=== PATIENT | female | born 1990 | race Caucasian/White ===

== ENCOUNTER 2018-04-26 21:16 | Day surgery (SDC) | payer MEDICAID, OTHER ==
[2018-04-26 21:58] VITALS: BMI 33.8
--- NOTE | 2018-04-27 02:39 | PRG ---
DATE OF SERVICE: 04/26/2018 TIME OF SERVICE: 2230 hours. OB ED NOTE PRESENTING COMPLAINT: Contractions at 38 weeks and 2 days. HISTORY OF PRESENT ILLNESS: Ms. Canela is a 27-year-old, G2, P1 with an EDC of 06/12/2018 based on LM P with a first trimester ultrasound within 3 days of her VENECIA based on LMP. She presents complaining of contractions over the afternoon. She reports that they were as close as 1 minute apart. She milly es rupture of membranes. She denies change in her vaginal bleeding. She reports an active fetus. S he reports that her exam at Dr. Garcia's office this week was and -2. OBSTETRIC AND GYNECOLOGIC HISTORY: in 04/2016 at 39 weeks and 2 days, an elective induction at [facility] of a 7-pound 6-ounce male . Had a nuchal cord x1. Delivery note was not available for rev iew, only OR records from previous delivery. The patient's blood type is O positive, antibody negati ve, Pap negative, rubella immune, VDRL nonreactive. Her group B strep screen was negative on 018. PAST MEDICAL HISTORY: Migraines. PAST SURGICAL HISTORY: Denies. ALLERGIES: None. MEDICATIONS: vitamins. SOCIAL HISTORY: Denies tobacco, alcohol, or IV drug abuse. FAMILY HISTORY: Noncontributory. REVIEW OF SYSTEMS: Noncontributory. PHYSICAL EXAMINATION: GENERAL: White female complaining of discomfort, but no identifiable contractions in discussing with her. She reports an active fetus. VITAL SIGNS: Temperature is 98.6, respirations 18, blood pressure is 134/82. ABDOMEN: Soft and nontender without rebound or guarding. PELVIC: Vulva without lesions. Vagina without discharge. Cervical exam by RN revealed cephalic pre sentation, 250, -2. This is consistent with last noted exam at Dr. Garcia's office on 04/16/2018 on [facility] OB record, which was , -2. EXTREMITIES: Without clubbing, cyanosis, or edema. MONITORING: monitoring was carried out for 30 minutes. The patient had a category 1 fet al heart rate tracing with a baseline of 140s to 150s with positive accelerations, no decelerations. Over the 30-minute period, the patient had 4 contractions for an average approximately q.8 minutes. These were indentable and mild. IMPRESSION: Uterine irritability versus early latent labor. No evidence of active labor. PLAN: Discussed with the patient options. I explained to the patient that waiting and rechecking in 2 hours with such inactive uterine contractions was unlikely to yield cervical change as her cervix was essentially unchanged over the past 2 weeks from the office. The patient's family was concerned about the patient going into labor. I explained that returning to labor and delivery at any point in time was a reasonable plan, although recommended before making drive from [place] that the krystian ent have firm significant contractions every 3 minutes or closer for greater than 1 hour. ER precaut ions for rupture of membranes were given. The patient has scheduled appointment in [address] Fatmata james and was recommended to call his office on Saturday morning if she felt that things were progressin g more than they were over the weekend. A detailed explanation of the inability to induce labor at 3 7-38 weeks' gestation based on LMP and early ultrasound without indication. Family expressed some be wilderment, but eventually seemed to have understanding.
== END 2018-04-26 22:40 | disposition home or self-care (01) ==
LOC: L&D/OP 21:16
PROVIDERS: ATTEND Obstetrics & Gynecology
DX: O47.1 False labor at or after 37 completed weeks of gestation (principal); Z3A.38 38 weeks gestation of pregnancy
CPT/HCPCS: 99282

== ENCOUNTER 2018-04-29 10:28 | Inpatient (IN) | payer OTHER ==
[2018-04-29] MEDS ORDERED: Ondansetron HCl/PF 4 MG/2 ML Vial IVP PRN ×3 (10:38→19:10)
[2018-04-29] MEDS ORDERED: HYDROcodone/Acetaminophen 5/325 mg Tablet PO PRN ×2 (10:38)
[2018-04-29] MEDS ORDERED: Ibuprofen 800 MG TAB PO PRN (10:38)
[2018-04-29] MEDS ORDERED: Lidocaine 1% (PF) 30 ML VIAL SC PRN (10:38)
[2018-04-29] MEDS ORDERED: Promethazine HCl 25 MG/ML VIAL IM PRN ×2 (10:38→12:52)
[2018-04-29] MEDS ORDERED: Butorphanol Tartrate 1 MG/ML VIAL SLOW IVP PRN (10:38)
[2018-04-29] MEDS ORDERED: NS / Oxytocin 40 units/1000ml 1,000 ML IV PRN (10:38)
[2018-04-29] MEDS ORDERED: Acetaminophen 500 MG TAB PO PRN (10:38)
[2018-04-29] MEDS ORDERED: Misoprostol 200 MCG TAB PR PRN (10:38)
[2018-04-29] MEDS ORDERED: Docusate 100 MG CAP PO PRN (10:38)
[2018-04-29] MEDS ORDERED: NS w/ Oxytocin 10 units 500 ML IV SCH (10:45)
[2018-04-29 11:41] LABS: Hemoglobin 9.7 g/dL (12.0-16.0); Mean Corpuscular HGB CONC 32.3 g/dL (32.0-36.0); Mean Corpuscular Volume 80.5 fL (78.0-98.0); Platelet Count 135 thou/uL (130-400); RBC Distribution Width 15.1 % (11.5-14.5); Red Blood Cell (RBC) Count 3.71 mill/uL (4.20-5.40)
[2018-04-29] MEDS: Lactated Ringer's 1,000 ML IV SCH ×2 (12:00→15:20)
[2018-04-29] MEDS ORDERED: Bupivacaine 0.5% 20 ML, fentaNYL Citrate/PF 400 MCG in Sodium Chloride 0.9% 72 ML EPIDURAL SCH (12:00)
[2018-04-29] MEDS ORDERED: DISCONTINUE ALL PREVIOUS NARCOTICS FS SCH (12:00)
[2018-04-29 12:14] LABS: Syphilis Antibody Nonreactive (Nonreactive); Syphilis Antibody Index 0.03 S/CO (<1.00 Non-Reactive)
[2018-04-29 12:16] LABS: HBSAg Index 0.24 S/CO (0-0.99); Hep B Surf Ag Non-Reactive S/CO (NonReactive)
[2018-04-29] MEDS ORDERED: Fentanyl 100 MCG/2 ML VIAL ONE (12:21)
[2018-04-29] MEDS ORDERED: Bupivacaine 0.5% 10 ML VIAL ONE (12:21)
[2018-04-29] MEDS ORDERED: Lactated Ringer's 500 ML IV PRN (12:52)
[2018-04-29] MEDS ORDERED: Eucerin (Mineral Oil/Petrolatum,White) 30 gm Jar TOP PRN (12:52)
[2018-04-29] MEDS ORDERED: Naloxone HCl 0.4 mg/ml Vial IVP PRN ×2 (12:52)
[2018-04-29] MEDS ORDERED: ePHEDrine/0.9% NaCl/PF SYRINGE 50 mg/10 ml SLOW IVP PRN (12:52)
[2018-04-29] MEDS ORDERED: diphenhydrAMINE 50 MG/ML VIAL IVP PRN (12:52)
[2018-04-29] MEDS ORDERED: Acetaminophen 325 MG TAB PO PRN (12:52)
[2018-04-29] MEDS ORDERED: Communication Order-Pharmacy FS SCH (13:00)
[2018-04-29] MEDS ORDERED: fentaNYL Citrate/PF 400 MCG, Bupivacaine 0.5% 20 ML in Sodium Chloride 0.9% 72 ML EPIDURAL SCH (13:00)
[2018-04-29 14:36] VITALS: BMI 33.5
[2018-04-29] MEDS ORDERED: Lidocaine 1% (PF) 30 ML VIAL ONE (16:40)
[2018-04-29] MEDS ORDERED: Benzocaine/Menthol 20-0.5% 60 ML CAN TOP PRN (19:10)
[2018-04-29] MEDS ORDERED: Lanolin Ointment 7 GM TUBE TOP PRN (19:10)
[2018-04-29] MEDS ORDERED: Acetaminophen/Codeine 30-300mg Tablet PO PRN (19:10)
[2018-04-29] MEDS ORDERED: Preparation H Ointment 28 GM TUBE PR PRN (19:10)
[2018-04-29] MEDS ORDERED: Milk Of Magnesia 30 ML UDCUP PO PRN (19:10)
[2018-04-29] MEDS ORDERED: Zolpidem Tartrate 5 MG TAB PO PRN (19:10)
[2018-04-29] MEDS ORDERED: diphenhydrAMINE 25 MG CAP PO PRN (19:10)
[2018-04-29] MEDS ORDERED: Bisacodyl 10 MG SUPP PR PRN (19:10)
[2018-04-29] MEDS ORDERED: Adacel (T-DAP) 0.5 ML VIAL IM ONE (19:10)
[2018-04-29] MEDS ORDERED: NS / Oxytocin 40 units/1000ml 1,000 ML IV SCH (19:15)
[2018-04-29] MEDS ORDERED: Bupivacaine 0.25% HCL 30 ML VIAL ONE (21:00)
[2018-04-29] MEDS: Ibuprofen 800 MG TAB PO SCH (22:17)
[2018-04-30] MEDS: Acetaminophen/Codeine 30-300mg Tablet PO PRN ×3 (05:13→17:25)
[2018-04-30] MEDS: Ibuprofen 800 MG TAB PO SCH ×3 (05:41→21:37)
[2018-04-30 07:19] LABS: Hemoglobin 7.9 g/dL (12.0-16.0); Mean Corpuscular Volume 81.5 fL (78.0-98.0); Mean Platelet Volume 10.1 fL (7.4-10.4); Platelet Count 102 thou/uL (130-400); RBC Distribution Width 15.2 % (11.5-14.5); Red Blood Cell (RBC) Count 3.04 mill/uL (4.20-5.40)
[2018-04-30] MEDS: Docusate Calcium (SURFAK) 240 MG CAP PO SCH ×3 (09:03→21:37)
[2018-04-30] MEDS: Prenatal Vitamin 1 TAB PO SCH (09:10)
[2018-04-30] MEDS: Ferrous Sulfate 325 MG TAB PO SCH ×2 (09:10→17:21)
[2018-05-01] MEDS: Acetaminophen/Codeine 30-300mg Tablet PO PRN ×2 (01:23→07:36)
[2018-05-01] MEDS: Ibuprofen 800 MG TAB PO SCH (06:21)
[2018-05-01] MEDS: Prenatal Vitamin 1 TAB PO SCH (07:35)
[2018-05-01] MEDS: Docusate Calcium (SURFAK) 240 MG CAP PO SCH (07:36)
[2018-05-01] MEDS: Ferrous Sulfate 325 MG TAB PO SCH (07:36)
[2018-05-01 08:32] VITALS: BP 111/63; TEMP 97.7
== END 2018-05-01 10:45 | disposition home or self-care (01) | DRG 775 ==
LOC: L&D 10:28 → 3SW 04-30 12:55
PROVIDERS: ADMIT Obstetrics & Gynecology; ATTEND Obstetrics & Gynecology
PROC: 0KQM0ZZ Repair Perineum Muscle, Open Approach (ICD-10-PCS; principal; 2018-04-29)
PROC: 10E0XZZ Delivery of Products of Conception, External Approach (ICD-10-PCS; 2018-04-29)
PROC: 10907ZC Drainage of Amniotic Fluid, Therapeutic from Products of Conception, Via Natural or Artificial Opening (ICD-10-PCS; 2018-04-29)
DX: O70.1 Second degree perineal laceration during delivery (principal); Z37.0 Single live birth; O99.02 Anemia complicating childbirth; D64.9 Anemia, unspecified; Z3A.38 38 weeks gestation of pregnancy
CPT/HCPCS: 36415; 51702; 85027; 86780; 86850; 86900; 86901; 87340; J2001; J3010; J3490; J7050; S0020